=== PATIENT | female | born 1985 | race Caucasian/White ===

== ENCOUNTER 2018-07-21 13:35 | Inpatient (IN) ==
[2018-07-21] MEDS ORDERED: INSULIN REGULAR 100 UNIT/ML SUBCUT STA (16:43)
[2018-07-21 16:45] LABS: Basophils % 0.7 % (0.0-0.8); Eosinophils # 0.3 10*3/uL (0.0-0.87); Eosinophils % 6.3 % (0.00-10.9); Hematocrit 39.6 VOL% (35.7-47.0); Hemoglobin 13.3 GM/DL (12.0-16.0); Immature Granulocytes % 0.2 %; Immature Granulocytes Absolute 0.01 #; Lymphocytes # 2.8 10*3/uL (1.4-4.0); Lymphocytes % 51.7 % (21.3-54.2); Mean Corpuscular HGB Conc 33.6 GM/DL (32-36); Mean Corpuscular Hemoglobin 27 PG (27-34); Mean Corpuscular Volume 81.5 FL (87-102); Mean Platelet Volume 9.1 FL (9.6-12.0); Monocytes # 0.5 10*3/uL (0.11-0.8); Monocytes % 9.2 % (1.7-12.7); Neutrophils # 1.7 10*3/uL (1.4-7.4); Neutrophils % 31.9 % (38.7-73.9); Platelet Count 255 T/CUMM (130-400); Red Blood Count 4.86 MC/CUMM (3.8-5.5); Red Cell Distribution Width 13.4 % (9.3-17.3); White Blood Count 5.4 T/CUMM (4-12)
[2018-07-21 16:53] LABS: INR 0.9; Partial Thromboplastin Time 30.3 SECS (0-40)
[2018-07-21 17:10] LABS: Albumin 3.2 G/DL (3.4-5.0); Bilirubin,Total 0.6 MG/DL (0.2-1.0); Calcium 8.9 MG/DL (8.5-10.1); Osmolality,Calculated 277.5 MOS/KG (273-304); Potassium 3.9 MMOL/L (3.5-5.1); Total Protein 7.4 G/DL (6.4-8.3)
[2018-07-21 17:11] LABS: Lactic Acid 2.3 MMOL/L (0.4-2.0)
[2018-07-21] MEDS ORDERED: VANCOMYCIN INJ 1,000 MG in SODIUM CHLORIDE 0.9% 250 ML IV STA (17:33)
[2018-07-21 18:25] LABS: Eosinophils 7 % (0-10); Lymphocytes 51 % (20-55); Segmented Neutrophils 36 % (50-85); Total Cells Counted 100
[2018-07-21] MEDS ORDERED: ONDANSETRON 4 MG/2 ML VIAL IV PRN (18:37)
[2018-07-21] MEDS ORDERED: GLUCAGON 1 MG VIAL IM PRN ×2 (18:37)
[2018-07-21] MEDS ORDERED: DEXTROSE 50% 25 GM/50 ML VIAL IV PRN ×2 (18:37)
[2018-07-21 18:48] LABS: Platelet Estimate Adequate; Reactive Lymphocytes Few
[2018-07-21] MEDS ORDERED: HydrOXYzine PAMOATE 25 MG CAPSULE PO PRN (21:54)
[2018-07-21] MEDS ORDERED: KETOROLAC 30 MG/1 ML VIAL IV ONE (22:00)
[2018-07-21] MEDS: metFORMIN 500 MG TABLET PO SCH (22:25)
[2018-07-21] MEDS: ENOXAPARIN 40 MG/0.4 ML SYRINGE SUBCUT SCH (22:26)
[2018-07-21] MEDS: SODIUM CHLORIDE 0.9% 1,000 ML IV SCH (22:26)
[2018-07-21] MEDS: INSULIN REGULAR 100 UNIT/ML SUBCUT SCH (23:40)
[2018-07-22] MEDS: VANCOMYCIN INJ 1,000 MG in SODIUM CHLORIDE 0.9% 250 ML IV SCH ×3 (02:58→17:35)
[2018-07-22 07:34] LABS: Basophils % 0.7 % (0.0-0.8); Eosinophils # 0.3 10*3/uL (0.0-0.87); Hematocrit 35.8 VOL% (35.7-47.0); Hemoglobin 12.1 GM/DL (12.0-16.0); Immature Granulocytes % 0.2 %; Immature Granulocytes Absolute 0.01 #; Lymphocytes % 50.6 % (21.3-54.2); Mean Corpuscular HGB Conc 33.8 GM/DL (32-36); Mean Corpuscular Hemoglobin 28 PG (27-34); Mean Corpuscular Volume 81.9 FL (87-102); Mean Platelet Volume 9.3 FL (9.6-12.0); Monocytes # 0.6 10*3/uL (0.11-0.8); Monocytes % 9.6 % (1.7-12.7); Neutrophils % 33.9 % (38.7-73.9); Platelet Count 226 T/CUMM (130-400); Red Blood Count 4.37 MC/CUMM (3.8-5.5); Red Cell Distribution Width 13.3 % (9.3-17.3); White Blood Count 5.8 T/CUMM (4-12)
[2018-07-22 07:58] LABS: Eosinophils 6 % (0-10); Lymphocytes 56 % (20-55); Platelet Estimate Adequate; Segmented Neutrophils 34 % (50-85); Total Cells Counted 100
[2018-07-22 07:59] LABS: Atypical Lymphocytes Few; Hypochromasia 1+; Ovalocytes Slight
[2018-07-22 08:14] LABS: Albumin 2.6 G/DL (3.4-5.0); Bilirubin,Total 0.6 MG/DL (0.2-1.0); Calcium 8.1 MG/DL (8.5-10.1); Osmolality,Calculated 286.8 MOS/KG (273-304); Potassium 4.5 MMOL/L (3.5-5.1); Total Protein 6.5 G/DL (6.4-8.3)
[2018-07-22] MEDS ORDERED: PANTOPRAZOLE 40 MG TABLET PO SCH (09:00)
[2018-07-22] MEDS: PANTOPRAZOLE 40 MG TABLET PO SCH (10:47)
[2018-07-22] MEDS: metFORMIN 500 MG TABLET PO SCH ×2 (10:47→21:53)
[2018-07-22] MEDS: INSULIN REGULAR 100 UNIT/ML SUBCUT SCH ×4 (10:48→21:53)
[2018-07-22] MEDS ORDERED: ACETAMINOPHEN 325 MG TABLET PO PRN (17:28)
[2018-07-22] MEDS ORDERED: ACETAMINOPHEN 325 MG TABLET ONE (18:16)
[2018-07-22] MEDS ORDERED: INSULIN GLARGINE 100 UNIT/ML SUBCUT SCH (21:00)
[2018-07-22] MEDS: ENOXAPARIN 40 MG/0.4 ML SYRINGE SUBCUT SCH (21:55)
[2018-07-23] MEDS: SODIUM CHLORIDE 0.9% 1,000 ML IV SCH ×4 (00:26→22:13)
[2018-07-23] MEDS: VANCOMYCIN INJ 1,000 MG in SODIUM CHLORIDE 0.9% 250 ML IV SCH ×3 (02:22→18:53)
[2018-07-23] MEDS: metFORMIN 500 MG TABLET PO SCH ×2 (09:10→22:11)
[2018-07-23] MEDS: INSULIN REGULAR 100 UNIT/ML SUBCUT SCH ×4 (09:11→21:50)
[2018-07-23] MEDS: PANTOPRAZOLE 40 MG TABLET PO SCH (09:11)
[2018-07-23] MEDS ORDERED: INSULIN GLARGINE 100 UNIT/ML SUBCUT SCH (11:37)
[2018-07-23] MEDS: INSULIN LISPRO 100 UNIT/ML SUBCUT SCH ×2 (12:57→17:26)
[2018-07-23] MEDS: ENOXAPARIN 40 MG/0.4 ML SYRINGE SUBCUT SCH (22:12)
[2018-07-24] MEDS: SODIUM CHLORIDE 0.9% 1,000 ML IV SCH ×3 (00:22→10:22)
[2018-07-24] MEDS: VANCOMYCIN INJ 1,000 MG in SODIUM CHLORIDE 0.9% 250 ML IV SCH ×2 (01:53→09:16)
[2018-07-24 06:28] LABS: Calcium 8.4 MG/DL (8.5-10.1); Osmolality,Calculated 283.8 MOS/KG (273-304); Potassium 4.2 MMOL/L (3.5-5.1)
[2018-07-24] MEDS: INSULIN LISPRO 100 UNIT/ML SUBCUT SCH (08:15)
[2018-07-24] MEDS: PANTOPRAZOLE 40 MG TABLET PO SCH (08:15)
[2018-07-24] MEDS: metFORMIN 500 MG TABLET PO SCH (08:15)
[2018-07-24] MEDS: INSULIN REGULAR 100 UNIT/ML SUBCUT SCH (08:16)
[2018-07-24 08:53] VITALS: BP 122/71
[2018-07-24] MEDS ORDERED: INSULIN GLARGINE 100 UNIT/ML SUBCUT SCH (10:43)
[2018-07-24] MEDS ORDERED: DICLOFENAC 1% GEL 100 GM TUBE TOP SCH (15:00)
[2018-07-24] MEDS ORDERED: rOPINIRole 0.25 MG TABLET PO SCH (21:00)
== END 2018-07-24 11:15 | disposition home or self-care (01) | DRG 420 ==
LOC: N.ED 13:35 → N.EDINP 18:37 → N.5E 20:04
PROVIDERS: ADMIT Hospitalist; ATTEND Hospitalist

== ENCOUNTER 2018-08-15 19:36 | Inpatient (IN) ==
[2018-08-15 20:29] LABS: Basophils # 0.1 10*3/uL (0.0-0.2); Basophils % 0.4 % (0.0-0.8); Eosinophils # 0.1 10*3/uL (0.0-0.87); Eosinophils % 0.6 % (0.00-10.9); Hematocrit 36.8 VOL% (35.7-47.0); Hemoglobin 12.3 GM/DL (12.0-16.0); Immature Granulocytes % 0.3 %; Immature Granulocytes Absolute 0.04 #; Lymphocytes # 4.8 10*3/uL (1.4-4.0); Mean Corpuscular HGB Conc 33.4 GM/DL (32-36); Mean Corpuscular Hemoglobin 27 PG (27-34); Mean Corpuscular Volume 81.1 FL (87-102); Mean Platelet Volume 9.1 FL (9.6-12.0); Monocytes # 1.1 10*3/uL (0.11-0.8); Monocytes % 8.6 % (1.7-12.7); Neutrophils # 6.2 10*3/uL (1.4-7.4); Neutrophils % 51.1 % (38.7-73.9); Platelet Count 236 T/CUMM (130-400); Red Blood Count 4.54 MC/CUMM (3.8-5.5); Red Cell Distribution Width 13.9 % (9.3-17.3); White Blood Count 12.2 T/CUMM (4-12)
[2018-08-15] MEDS ORDERED: LORazepam 2 MG/1 ML VIAL IV STA ×3 (20:29→22:55)
[2018-08-15] MEDS ORDERED: MORPHINE 4 MG/1 ML VIAL IV STA (20:29)
[2018-08-15] MEDS ORDERED: SODIUM CHLORIDE 0.9% 1,000 ML IV STA ×2 (20:29→22:08)
[2018-08-15] MEDS ORDERED: ONDANSETRON 4 MG/2 ML VIAL IV ONE (20:29)
[2018-08-15 20:46] LABS: Alanine Aminotransferase 64 U/L (13-56); Albumin 3.6 G/DL (3.4-5.0); Alkaline Phosphatase 152 U/L (45-117); Aspartate Amino Transferase 34 U/L (0-37); Blood Urea Nitrogen 8 MG/DL (7-18); Osmolality,Calculated 278.2 MOS/KG (273-304); Potassium 4.4 MMOL/L (3.5-5.1); Sodium 127 MMOL/L (136-145); Total Protein 7.5 G/DL (6.4-8.3)
[2018-08-15 20:51] LABS: Glucose 575 MG/DL (74-106)
[2018-08-15 20:52] LABS: Lactic Acid 2.4 MMOL/L (0.4-2.0)
[2018-08-15 20:56] LABS: Polychromasia Few
[2018-08-15 20:57] LABS: Platelet Estimate Increased; Stomatocytes Slight
[2018-08-15] MEDS ORDERED: VANCOMYCIN INJ 1,000 MG in SODIUM CHLORIDE 0.9% 250 ML IV STA (21:39)
[2018-08-15] MEDS ORDERED: INSULIN REGULAR 100 UNIT/ML ONE (22:02)
[2018-08-15] MEDS ORDERED: INSULIN REGULAR 100 UNIT/ML IV STA (22:07)
[2018-08-15] MEDS ORDERED: ALBUTEROL 2.5 MG/3 ML NEB RESP TX PRN (23:12)
[2018-08-15] MEDS ORDERED: LACTATED RINGERS 1,000 ML IV ONE (23:29)
[2018-08-15] MEDS ORDERED: VASOPRESSIN 100 UNITS in SODIUM CHLORIDE 0.9% 95 ML IV PRN (23:29)
[2018-08-15] MEDS ORDERED: GLUCAGON 1 MG VIAL IM PRN (23:29)
[2018-08-15] MEDS ORDERED: ACETAMINOPHEN 325 MG TABLET PO PRN (23:29)
[2018-08-15] MEDS ORDERED: LORazepam 2 MG/1 ML VIAL IV PRN (23:29)
[2018-08-15] MEDS ORDERED: HALOPERIDOL 5 MG/ML AMP IV PRN (23:29)
[2018-08-15] MEDS ORDERED: NICOTINE 21 MG/24 HR PATCH TRANSDERM PRN (23:29)
[2018-08-15] MEDS ORDERED: DEXTROSE 50% 25 GM/50 ML VIAL IV PRN (23:29)
[2018-08-16 00:07] LABS: PT Patient Result 10.1 SECS
[2018-08-16 00:08] LABS: Apearance,Urine CLEAR (Clear); Bacteria,Urine Occasional /HPF (Few); Bilirubin,Urine Negative (Negative); Blood, Urine Negative (Negative); Glucose,Urine (UA) >=500 mg/dL (Negative); Ketones,Urine Negative (Negative); Mucus,Urine Occasional /LPF (Occasional); Nitrite,Urine Negative (Negative); Protein,Urine Negative; Squamous Epithelial Cell,Urine Occasional /HPF (0-10); Urine Color Straw (Yellow); Urine Specific Gravity 1.044 (1.001-1.035); Urine Urobilinogen < 2.0 EU/DL (0.2-1.0); WBC,Urine 2 /HPF (0-6)
[2018-08-16] MEDS ORDERED: SODIUM CHLORIDE 0.9% 2,000 ML IV ONE (00:09)
[2018-08-16] MEDS ORDERED: NOREPINEPHRINE 8 MG in SODIUM CHLORIDE 0.9% 242 ML IV PRN (00:14)
[2018-08-16 00:29] LABS: Barbiturates Screen,Urine Negative (Negative); Benzodiazepines Screen,Urine Negative (Negative); Cannabinoid Screen,Urine Negative (Negative); Opiate Screen,Urine Positive (Negative); Phencyclidine Screen,Urine Negative (Negative)
[2018-08-16] MEDS: CLINDAMYCIN INJ 600 MG in PREMIX 1 EACH IV SCH ×4 (00:40→23:03)
[2018-08-16] MEDS ORDERED: INFLUENZA VIRUS VACCINE 0.5 ML SYRINGE IM ONE (00:56)
[2018-08-16] MEDS: SODIUM CHLORIDE 0.9% 1,000 ML IV SCH ×3 (02:59→19:03)
[2018-08-16 03:20] LABS: Basophils % 0.4 % (0.0-0.8); Eosinophils % 0.4 % (0.00-10.9); Hemoglobin 11.1 GM/DL (12.0-16.0); Immature Granulocytes % 0.3 %; Immature Granulocytes Absolute 0.03 #; Lymphocytes # 4.6 10*3/uL (1.4-4.0); Lymphocytes % 42.8 % (21.3-54.2); Mean Corpuscular HGB Conc 32.6 GM/DL (32-36); Mean Corpuscular Hemoglobin 28 PG (27-34); Mean Corpuscular Volume 84.2 FL (87-102); Mean Platelet Volume 9.1 FL (9.6-12.0); Monocytes # 0.9 10*3/uL (0.11-0.8); Monocytes % 8.7 % (1.7-12.7); Neutrophils # 5.2 10*3/uL (1.4-7.4); Neutrophils % 47.4 % (38.7-73.9); Platelet Count 182 T/CUMM (130-400); Red Blood Count 4.04 MC/CUMM (3.8-5.5); Red Cell Distribution Width 14.1 % (9.3-17.3); White Blood Count 10.9 T/CUMM (4-12)
[2018-08-16] MEDS ORDERED: ZIPRASIDONE 20 MG/1 ML VIAL IM ONE (03:22)
[2018-08-16 03:45] LABS: Calcium 7.2 MG/DL (8.5-10.1); Osmolality,Calculated 273.4 MOS/KG (273-304); Potassium 3.8 MMOL/L (3.5-5.1)
[2018-08-16 03:50] LABS: Lactic Acid 1.2 MMOL/L (0.4-2.0)
[2018-08-16] MEDS: LORazepam 2 MG/1 ML VIAL IV PRN ×6 (05:06→23:52)
[2018-08-16] MEDS: PANTOPRAZOLE 40 MG VIAL IV SCH (08:33)
[2018-08-16] MEDS: HALOPERIDOL 5 MG/ML AMP IV PRN ×3 (08:36→23:52)
[2018-08-16] MEDS: INSULIN REGULAR 100 UNIT/ML SUBCUT SCH ×2 (17:18→20:10)
[2018-08-16] MEDS: rOPINIRole 0.25 MG TABLET PO SCH (20:05)
[2018-08-16] MEDS: INSULIN GLARGINE 100 UNIT/ML SUBCUT SCH (20:11)
[2018-08-17] MEDS: ACETAMINOPHEN 650 MG SUPP RECTAL PRN (00:36)
[2018-08-17 03:23] LABS: Basophils % 0.4 % (0.0-0.8); Eosinophils % 0.5 % (0.00-10.9); Hematocrit 33.2 VOL% (35.7-47.0); Hemoglobin 10.6 GM/DL (12.0-16.0); Immature Granulocytes % 0.4 %; Immature Granulocytes Absolute 0.03 #; Lymphocytes # 3.3 10*3/uL (1.4-4.0); Lymphocytes % 41.1 % (21.3-54.2); Mean Corpuscular HGB Conc 31.9 GM/DL (32-36); Mean Corpuscular Hemoglobin 27 PG (27-34); Mean Corpuscular Volume 85.1 FL (87-102); Mean Platelet Volume 9.2 FL (9.6-12.0); Monocytes # 0.5 10*3/uL (0.11-0.8); Monocytes % 6.6 % (1.7-12.7); Neutrophils # 4.1 10*3/uL (1.4-7.4); Platelet Count 199 T/CUMM (130-400); Red Cell Distribution Width 14.6 % (9.3-17.3)
[2018-08-17] MEDS: SODIUM CHLORIDE 0.9% 1,000 ML IV SCH ×2 (03:31→15:25)
[2018-08-17 03:46] LABS: Calcium 7.7 MG/DL (8.5-10.1); Osmolality,Calculated 278.5 MOS/KG (273-304); Potassium 3.2 MMOL/L (3.5-5.1)
[2018-08-17] MEDS: INSULIN REGULAR 100 UNIT/ML SUBCUT SCH ×4 (08:02→20:51)
[2018-08-17] MEDS: CLINDAMYCIN INJ 600 MG in PREMIX 1 EACH IV SCH (08:02)
[2018-08-17] MEDS: PANTOPRAZOLE 40 MG VIAL IV SCH (08:02)
[2018-08-17] MEDS ORDERED: MAGNESIUM SULF RIDER 2 GM in PREMIX 1 EACH IV ONE (08:04)
[2018-08-17] MEDS: MAGNESIUM SULF RIDER 2 GM in PREMIX 1 EACH IV SCH ×2 (09:26→12:01)
[2018-08-17] MEDS: POTASSIUM CHLORIDE 20 MEQ TABLET PO SCH ×3 (09:27→18:13)
[2018-08-17] MEDS: ceFAZolin 1,000 MG in SYRINGE 1 EACH IV SCH ×3 (11:47→23:40)
[2018-08-17] MEDS: POTASSIUM CHLORIDE RIDER 10 MEQ in PREMIX 1 EACH IV SCH ×2 (11:58→13:09)
[2018-08-17] MEDS: VANCOMYCIN INJ 750 MG in SODIUM CHLORIDE 0.9% 250 ML IV SCH ×2 (14:42→21:57)
[2018-08-17] MEDS: HALOPERIDOL 5 MG/ML AMP IM PRN (16:47)
[2018-08-17] MEDS: rOPINIRole 0.25 MG TABLET PO SCH (20:52)
[2018-08-17] MEDS: INSULIN GLARGINE 100 UNIT/ML SUBCUT SCH (20:52)
[2018-08-18] MEDS: ACETAMINOPHEN 650 MG SUPP RECTAL PRN (00:45)
[2018-08-18] MEDS: SODIUM CHLORIDE 0.9% 1,000 ML IV SCH ×2 (02:31→06:12)
[2018-08-18 03:25] LABS: Basophils % 0.4 % (0.0-0.8); Eosinophils # 0.1 10*3/uL (0.0-0.87); Eosinophils % 0.8 % (0.00-10.9); Hematocrit 32.7 VOL% (35.7-47.0); Hemoglobin 10.5 GM/DL (12.0-16.0); Immature Granulocytes % 0.4 %; Immature Granulocytes Absolute 0.03 #; Lymphocytes % 41.9 % (21.3-54.2); Mean Corpuscular HGB Conc 32.1 GM/DL (32-36); Mean Corpuscular Hemoglobin 27 PG (27-34); Mean Corpuscular Volume 85.2 FL (87-102); Mean Platelet Volume 9.2 FL (9.6-12.0); Monocytes # 0.5 10*3/uL (0.11-0.8); Monocytes % 6.9 % (1.7-12.7); Neutrophils # 3.5 10*3/uL (1.4-7.4); Neutrophils % 49.6 % (38.7-73.9); Platelet Count 226 T/CUMM (130-400); Red Blood Count 3.84 MC/CUMM (3.8-5.5); Red Cell Distribution Width 14.4 % (9.3-17.3); White Blood Count 7.1 T/CUMM (4-12)
[2018-08-18 03:37] LABS: Calcium 7.5 MG/DL (8.5-10.1); Potassium 3.5 MMOL/L (3.5-5.1)
[2018-08-18 04:29] LABS: HIV Antigen/Antibody Result Nonreactive (Nonreactive)
[2018-08-18] MEDS: ceFAZolin 1,000 MG in SYRINGE 1 EACH IV SCH ×4 (05:30→23:49)
[2018-08-18] MEDS: VANCOMYCIN INJ 750 MG in SODIUM CHLORIDE 0.9% 250 ML IV SCH ×2 (06:00→14:33)
[2018-08-18] MEDS: INSULIN REGULAR 100 UNIT/ML SUBCUT SCH ×4 (08:32→20:56)
[2018-08-18] MEDS: PANTOPRAZOLE 40 MG VIAL IV SCH (08:33)
[2018-08-18] MEDS: VANCOMYCIN INJ 1,000 MG in SODIUM CHLORIDE 0.9% 250 ML IV SCH (20:50)
[2018-08-18] MEDS: MUPIROCIN 2% OINT 22 GM TUBE TOP SCH (20:50)
[2018-08-18] MEDS: rOPINIRole 0.25 MG TABLET PO SCH (20:50)
[2018-08-18] MEDS: IBUPROFEN 600 MG TABLET PO PRN (20:50)
[2018-08-18] MEDS: INSULIN GLARGINE 100 UNIT/ML SUBCUT SCH (20:57)
[2018-08-19 06:00] LABS: Basophils % 0.5 % (0.0-0.8); Eosinophils # 0.1 10*3/uL (0.0-0.87); Eosinophils % 2.4 % (0.00-10.9); Hematocrit 31.3 VOL% (35.7-47.0); Hemoglobin 10.3 GM/DL (12.0-16.0); Immature Granulocytes % 0.2 %; Immature Granulocytes Absolute 0.01 #; Lymphocytes # 2.4 10*3/uL (1.4-4.0); Lymphocytes % 55.5 % (21.3-54.2); Mean Corpuscular HGB Conc 32.9 GM/DL (32-36); Mean Corpuscular Hemoglobin 28 PG (27-34); Mean Corpuscular Volume 83.9 FL (87-102); Mean Platelet Volume 8.8 FL (9.6-12.0); Monocytes # 0.4 10*3/uL (0.11-0.8); Monocytes % 9.2 % (1.7-12.7); Neutrophils # 1.4 10*3/uL (1.4-7.4); Neutrophils % 32.2 % (38.7-73.9); Platelet Count 214 T/CUMM (130-400); Red Blood Count 3.73 MC/CUMM (3.8-5.5); Red Cell Distribution Width 14.6 % (9.3-17.3); White Blood Count 4.3 T/CUMM (4-12)
[2018-08-19] MEDS: VANCOMYCIN INJ 1,000 MG in SODIUM CHLORIDE 0.9% 250 ML IV SCH ×3 (06:06→20:53)
[2018-08-19] MEDS: ceFAZolin 1,000 MG in SYRINGE 1 EACH IV SCH ×3 (06:07→18:15)
[2018-08-19 06:20] LABS: Eosinophils 3 % (0-10); Hypochromasia 1+; Lymphocytes 44 % (20-55); Platelet Estimate Adequate; Segmented Neutrophils 42 % (50-85); Total Cells Counted 100
[2018-08-19 06:21] LABS: Atypical Lymphocytes Few
[2018-08-19 06:32] LABS: Calcium 8.2 MG/DL (8.5-10.1); Osmolality,Calculated 284.4 MOS/KG (273-304); Potassium 3.7 MMOL/L (3.5-5.1)
[2018-08-19] MEDS: PANTOPRAZOLE 40 MG TABLET PO SCH (08:44)
[2018-08-19] MEDS: INSULIN REGULAR 100 UNIT/ML SUBCUT SCH ×4 (08:44→21:41)
[2018-08-19] MEDS ORDERED: MAGNESIUM SULF RIDER 4 GM in PREMIX 1 EACH IV ONE (10:30)
[2018-08-19] MEDS: MUPIROCIN 2% OINT 22 GM TUBE TOP SCH ×3 (11:06→21:40)
[2018-08-19] MEDS: metFORMIN 500 MG TABLET PO SCH ×2 (11:07→21:40)
[2018-08-19] MEDS: IBUPROFEN 600 MG TABLET PO PRN (17:43)
[2018-08-19] MEDS: HALOPERIDOL 5 MG/ML AMP IM PRN ×2 (17:43→21:51)
[2018-08-19] MEDS: VANCOMYCIN INJ 1,250 MG in SODIUM CHLORIDE 0.9% 250 ML IV SCH (21:29)
[2018-08-19] MEDS: rOPINIRole 0.25 MG TABLET PO SCH (21:40)
[2018-08-19] MEDS: INSULIN GLARGINE 100 UNIT/ML SUBCUT SCH (21:41)
[2018-08-20] MEDS: ceFAZolin 1,000 MG in SYRINGE 1 EACH IV SCH ×3 (00:11→11:41)
[2018-08-20] MEDS: VANCOMYCIN INJ 1,250 MG in SODIUM CHLORIDE 0.9% 250 ML IV SCH ×2 (03:44→12:50)
[2018-08-20 05:30] LABS: Basophils % 0.2 % (0.0-0.8); Eosinophils # 0.1 10*3/uL (0.0-0.87); Eosinophils % 3.1 % (0.00-10.9); Hemoglobin 9.8 GM/DL (12.0-16.0); Immature Granulocytes % 0.5 %; Immature Granulocytes Absolute 0.02 #; Lymphocytes # 2.6 10*3/uL (1.4-4.0); Lymphocytes % 63.4 % (21.3-54.2); Mean Corpuscular HGB Conc 31.6 GM/DL (32-36); Mean Corpuscular Hemoglobin 27 PG (27-34); Mean Corpuscular Volume 84.5 FL (87-102); Mean Platelet Volume 9.2 FL (9.6-12.0); Monocytes # 0.4 10*3/uL (0.11-0.8); Monocytes % 8.7 % (1.7-12.7); Neutrophils % 24.1 % (38.7-73.9); Platelet Count 216 T/CUMM (130-400); Red Blood Count 3.67 MC/CUMM (3.8-5.5); Red Cell Distribution Width 14.4 % (9.3-17.3); White Blood Count 4.2 T/CUMM (4-12)
[2018-08-20 05:50] LABS: Calcium 8.1 MG/DL (8.5-10.1); Osmolality,Calculated 285.1 MOS/KG (273-304); Potassium 3.7 MMOL/L (3.5-5.1)
[2018-08-20 06:04] LABS: Eosinophils 3 % (0-10); Hypochromasia Slight; Lymphocytes 61 % (20-55); Platelet Estimate Normal; Polychromasia Few; Segmented Neutrophils 34 % (50-85); Total Cells Counted 100
[2018-08-20] MEDS: INSULIN REGULAR 100 UNIT/ML SUBCUT SCH ×4 (08:59→22:09)
[2018-08-20] MEDS: PANTOPRAZOLE 40 MG TABLET PO SCH (09:20)
[2018-08-20] MEDS: metFORMIN 500 MG TABLET PO SCH ×2 (09:20→22:08)
[2018-08-20] MEDS: MUPIROCIN 2% OINT 22 GM TUBE TOP SCH ×3 (09:23→22:12)
[2018-08-20] MEDS ORDERED: LIDOCAINE 1% 20 ML VIAL MISC INJ ONE (11:02)
[2018-08-20] MEDS: LINEZOLID 600 MG TABLET PO SCH ×2 (13:16→22:08)
[2018-08-20] MEDS: LISINOPRIL 10 MG TABLET PO SCH (14:55)
[2018-08-20] MEDS ORDERED: TUBERCULIN SKIN TEST 0.1 ML SYRINGE INTRADERM ONE (15:24)
[2018-08-20] MEDS: IBUPROFEN 600 MG TABLET PO PRN ×2 (16:20→22:08)
[2018-08-20] MEDS: HALOPERIDOL 5 MG/ML AMP IM PRN (16:42)
[2018-08-20] MEDS: rOPINIRole 0.25 MG TABLET PO SCH (22:08)
[2018-08-20] MEDS: INSULIN GLARGINE 100 UNIT/ML SUBCUT SCH (22:09)
[2018-08-21] MEDS: PANTOPRAZOLE 40 MG TABLET PO SCH (09:40)
[2018-08-21] MEDS: LISINOPRIL 10 MG TABLET PO SCH (09:40)
[2018-08-21] MEDS: metFORMIN 500 MG TABLET PO SCH ×2 (09:40→20:27)
[2018-08-21] MEDS: LINEZOLID 600 MG TABLET PO SCH ×2 (09:41→20:27)
[2018-08-21] MEDS: INSULIN REGULAR 100 UNIT/ML SUBCUT SCH ×4 (09:42→20:27)
[2018-08-21] MEDS: MUPIROCIN 2% OINT 22 GM TUBE TOP SCH ×3 (09:42→20:28)
[2018-08-21] MEDS: INSULIN GLARGINE 100 UNIT/ML SUBCUT SCH ×2 (12:01→20:28)
[2018-08-21] MEDS: INSULIN LISPRO 100 UNIT/ML SUBCUT SCH ×2 (12:02→16:47)
[2018-08-21] MEDS: IBUPROFEN 600 MG TABLET PO PRN (14:49)
[2018-08-21] MEDS: HALOPERIDOL 5 MG/ML AMP IM PRN (19:45)
[2018-08-21] MEDS: rOPINIRole 0.25 MG TABLET PO SCH (20:27)
[2018-08-22] MEDS: HALOPERIDOL 5 MG/ML AMP IM PRN (03:57)
[2018-08-22] MEDS: INSULIN REGULAR 100 UNIT/ML SUBCUT SCH ×2 (10:03→12:15)
[2018-08-22] MEDS: INSULIN GLARGINE 100 UNIT/ML SUBCUT SCH (10:05)
[2018-08-22] MEDS: PANTOPRAZOLE 40 MG TABLET PO SCH (10:06)
[2018-08-22] MEDS: LINEZOLID 600 MG TABLET PO SCH (10:06)
[2018-08-22] MEDS: metFORMIN 500 MG TABLET PO SCH (10:06)
[2018-08-22] MEDS: LISINOPRIL 10 MG TABLET PO SCH (10:08)
[2018-08-22] MEDS: INSULIN LISPRO 100 UNIT/ML SUBCUT SCH ×2 (10:08→12:14)
[2018-08-22] MEDS: MUPIROCIN 2% OINT 22 GM TUBE TOP SCH (10:11)
[2018-08-22 12:55] VITALS: BP 105/65
== END 2018-08-22 13:59 | disposition home or self-care (01) | DRG 812 ==
LOC: N.ED 19:36 → SUATTDRO 23:12 → N.EDINP 23:12 → N.ICU 23:52 → N.3E 08-19 13:11
PROVIDERS: ADMIT Internal Medicine; ATTEND Internal Medicine

== ENCOUNTER 2022-08-12 13:28 | Inpatient (IN) ==
[2022-08-12] MEDS ORDERED: GLUCAGON 1 MG VIAL IM PRN (14:39)
[2022-08-12] MEDS ORDERED: DEXTROSE 10% 250 ML BAG IV PRN (14:39)
[2022-08-12 14:55] LABS: Basophils % 0.2 % (0.0-0.8); Eosinophils # 0.1 10*3/uL (0.0-0.87); Eosinophils % 1.2 % (0.00-10.9); Hematocrit 35.3 VOL% (35.7-47.0); Hemoglobin 11.4 GM/DL (12.0-16.0); Immature Granulocytes % 0.6 %; Immature Granulocytes Absolute 0.05 #; Lymphocytes # 2.2 10*3/uL (1.4-4.0); Lymphocytes % 26.3 % (21.3-54.2); Mean Corpuscular HGB Conc 32.3 GM/DL (32-36); Mean Corpuscular Volume 90.5 FL (87-102); Mean Platelet Volume 10.2 FL (9.6-12.0); Monocytes # 0.6 10*3/uL (0.11-0.8); Monocytes % 7.5 % (1.7-12.7); Neutrophils % 64.2 % (38.7-73.9); Platelet Count 206 T/CUMM (130-400); Red Cell Distribution Width 14.7 % (9.3-17.3); White Blood Count 8.4 T/CUMM (4-12)
[2022-08-12] MEDS: BETAMETH SODIUM PHOS/ACETATE 30 MG/5 ML VIAL IM SCH (14:55)
[2022-08-12 15:30] LABS: Alanine Aminotransferase 21 U/L (13-56); Albumin 2.4 G/DL (3.4-5.0); Alkaline Phosphatase 84 U/L (45-117); Aspartate Amino Transferase 36 U/L (0-37); Bilirubin,Total < 0.39 MG/DL (0.20-1.00); Blood Urea Nitrogen 12 MG/DL (7-18); Calcium 8.8 MG/DL (8.5-10.1); Carbon Dioxide 18 MMOL/L (21-32); Chloride 110 MMOL/L (98-107); Glucose 123 MG/DL (74-106); Osmolality,Calculated 275.7 MOS/KG (273-304); Potassium 4.3 MMOL/L (3.5-5.1); Sodium 138 MMOL/L (136-145); Total Protein 6.5 G/DL (6.4-8.2)
[2022-08-12] MEDS: INSULIN REGULAR 100 UNIT/ML SUBCUT SCH ×2 (16:40→20:53)
[2022-08-12] MEDS ORDERED: INSULIN LISPRO 100 UNIT/ML SUBCUT SCH (16:54)
[2022-08-12 17:28] LABS: INR 0.8; PT Patient Result 9.4 SECS (10.1-12.1); Partial Thromboplastin Time 27.6 SECS (23.7-32.9)
[2022-08-12 18:10] LABS: Bilirubin,Direct < 0.100 MG/DL (0.0-0.20); Uric Acid 7.6 MG/DL (2.6-6.0)
[2022-08-12] MEDS: LACTATED RINGERS 1,000 ML IV SCH (18:16)
[2022-08-12 18:47] LABS: Protein/Creatinine Ratio,Urine 0.4 RATIO
[2022-08-12 18:48] LABS: Barbiturates Screen,Urine Negative (Negative); Benzodiazepines Screen,Urine Negative (Negative); Cannabinoid Screen,Urine Negative (Negative); Opiate Screen,Urine Negative (Negative); Phencyclidine Screen,Urine Negative (Negative)
[2022-08-12] MEDS: LABETALOL 200 MG TABLET PO SCH (20:38)
[2022-08-12] MEDS: INSULIN GLARGINE 100 UNIT/ML SUBCUT SCH (20:53)
[2022-08-12] MEDS ORDERED: INSULIN GLARGINE 100 UNIT/ML SUBCUT SCH (21:00)
[2022-08-13 00:05] LABS: RPR Confirm - Less than 1 yr REACTIVE (Nonreactive)
[2022-08-13] MEDS: BETAMETH SODIUM PHOS/ACETATE 30 MG/5 ML VIAL IM SCH (02:23)
[2022-08-13] MEDS ORDERED: hydrOXYzine HCL 25 MG/1 ML VIAL IM ONE (03:36)
[2022-08-13] MEDS ORDERED: SODIUM CHLORIDE 0.9% 0 ML IV ONE (06:03)
[2022-08-13] MEDS ORDERED: ONDANSETRON 4 MG/2 ML VIAL ONE (06:56)
[2022-08-13] MEDS ORDERED: PHENYLEPHRINE 1 MG/10 ML SYRINGE IV ONE (06:56)
[2022-08-13] MEDS ORDERED: buprenorphine HCL 0.3 MG/ML VIAL ONE (06:57)
[2022-08-13] MEDS ORDERED: DEXMEDETOMIDINE 200 MCG/2 ML VIAL ONE (06:57)
[2022-08-13] MEDS ORDERED: OXYTOCIN/LR 20 UNIT/1,000 ML BAG IV ONE ×2 (07:00→10:12)
[2022-08-13] MEDS ORDERED: FAMOTIDINE 20 MG/2 ML VIAL IV ONE (07:00)
[2022-08-13] MEDS ORDERED: CITRIC ACID/SODIUM CITRATE 30 ML UDCUP PO ONE (07:00)
[2022-08-13] MEDS ORDERED: miSOPROStoL 200 MCG TABLET RECTAL PRN (07:00)
[2022-08-13] MEDS ORDERED: METHYLERGONOVINE 0.2 MG/1 ML AMP IM PRN (07:00)
[2022-08-13] MEDS ORDERED: OXYTOCIN/LR 30 UNIT/1,000 ML BAG IV ONE (07:00)
[2022-08-13] MEDS ORDERED: CARBOPROST TROMETHAMINE 250 MCG/ML AMP IM PRN (07:00)
[2022-08-13] MEDS ORDERED: TRANEXAMIC ACID 1,000 MG in SODIUM CHLORIDE 0.9% 100 ML IV PRN (07:00)
[2022-08-13] MEDS ORDERED: ceFAZolin 3,000 MG in SYRINGE 1 EACH IV ONE (07:00)
[2022-08-13] MEDS: LACTATED RINGERS 1,000 ML IV SCH ×4 (07:01→23:08)
[2022-08-13] MEDS ORDERED: OXYTOCIN 10 UNIT/ML VIAL IM ONE (07:01)
[2022-08-13] MEDS: INSULIN REGULAR 100 UNIT/ML SUBCUT SCH ×4 (07:30→23:11)
[2022-08-13] MEDS: LABETALOL 200 MG TABLET PO SCH ×2 (07:42→11:06)
[2022-08-13] MEDS ORDERED: KETOROLAC 30 MG/1 ML VIAL ONE (09:04)
[2022-08-13] MEDS ORDERED: ACETAMINOPHEN INJ 1,000 MG/100 ML VIAL IV ONE (09:04)
[2022-08-13] MEDS ORDERED: KETAMINE 500 MG/10 ML VIAL ONE (09:43)
[2022-08-13 09:44] LABS: Cord Arterial Blood HCO3 12.4 MMOL/L
[2022-08-13] MEDS ORDERED: BUPIVACAINE MPF 0.25% 30 ML VIAL ONE ×2 (09:45)
[2022-08-13 09:47] LABS: Cord Venous Blood HCO3 13.7 MMOL/L; Cord Venous Blood PCO2 57.6 MMHG; Cord Venous Blood PO2 18.2
[2022-08-13 09:48] LABS: Bilirubin,Urine Negative (Negative); Blood, Urine Negative (Negative); Glucose,Urine (UA) >=500 mg/dL (Negative); Ketones,Urine 80 mg/dL (Negative); Mucus,Urine Occasional /LPF (Occasional); Nitrite,Urine Negative (Negative); Protein,Urine Negative (Negative); RBC,Urine <1 /HPF (0-4); Urine Appearance CLEAR (Clear); Urine Color Straw (Yellow); Urine Specific Gravity 1.021 (1.001-1.035); Urine Urobilinogen < 2.0 eU/dL (<2.0)
[2022-08-13] MEDS ORDERED: DEXTROSE 10% 250 ML BAG IV PRN (10:12)
[2022-08-13] MEDS ORDERED: SIMETHICONE CHEW 80 MG TABLET PO PRN (10:12)
[2022-08-13] MEDS ORDERED: ONDANSETRON 4 MG/2 ML VIAL IV PRN (10:12)
[2022-08-13] MEDS ORDERED: RHO(D) IMMUNE GLOBULIN 300 MCG SYRINGE IM ONE (10:12)
[2022-08-13] MEDS ORDERED: GLUCAGON 1 MG VIAL IM PRN (10:12)
[2022-08-13] MEDS ORDERED: ACETAMINOPHEN 325 MG TABLET PO PRN (10:12)
[2022-08-13] MEDS ORDERED: MAGNESIUM HYDROXIDE SUSP 30 ML UDCUP PO PRN (10:12)
[2022-08-13] MEDS: INSULIN GLARGINE 100 UNIT/ML SUBCUT SCH (11:05)
[2022-08-13] MEDS: KETOROLAC 30 MG/1 ML VIAL IV SCH ×2 (16:36→22:40)
[2022-08-13] MEDS: ACETAMINOPHEN 500 MG TABLET PO SCH ×2 (16:38→22:40)
[2022-08-13 16:43] LABS: Basophils % 0.1 % (0.0-0.8); Hematocrit 33.2 VOL% (35.7-47.0); Hemoglobin 10.5 GM/DL (12.0-16.0); Immature Granulocytes % 0.6 %; Immature Granulocytes Absolute 0.09 #; Lymphocytes # 1.3 10*3/uL (1.4-4.0); Lymphocytes % 9.5 % (21.3-54.2); Mean Corpuscular HGB Conc 31.6 GM/DL (32-36); Mean Corpuscular Volume 91.7 FL (87-102); Mean Platelet Volume 10.5 FL (9.6-12.0); Monocytes # 0.9 10*3/uL (0.11-0.8); Monocytes % 6.1 % (1.7-12.7); Neutrophils % 83.7 % (38.7-73.9); Platelet Count 202 T/CUMM (130-400); Red Blood Count 3.62 MC/CUMM (3.8-5.5); Red Cell Distribution Width 15.1 % (9.3-17.3); White Blood Count 14.1 T/CUMM (4-12)
[2022-08-13] MEDS ORDERED: INSULIN LISPRO 100 UNIT/ML SUBCUT ONE (20:45)
[2022-08-13] MEDS ORDERED: INSULIN GLARGINE 100 UNIT/ML SUBCUT SCH (21:00)
[2022-08-13] MEDS: DOCUSATE SODIUM 100 MG CAPSULE PO SCH (23:12)
[2022-08-13] MEDS ORDERED: DEXTROSE 50% 25 GM/50 ML SYRINGE IV PRN (23:20)
[2022-08-13] MEDS ORDERED: PROMETHAZINE 25 MG/1 ML VIAL IM ONE (23:22)
[2022-08-13] MEDS ORDERED: MEPERIDINE 50 MG/1 ML VIAL IM ONE (23:30)
[2022-08-14] MEDS: ACETAMINOPHEN 500 MG TABLET PO SCH (04:20)
[2022-08-14] MEDS: KETOROLAC 30 MG/1 ML VIAL IV SCH ×2 (04:20→10:15)
[2022-08-14 05:28] LABS: Basophils % 0.2 % (0.0-0.8); Eosinophils % 0.1 % (0.00-10.9); Hematocrit 31.3 VOL% (35.7-47.0); Immature Granulocytes % 0.9 %; Lymphocytes # 2.1 10*3/uL (1.4-4.0); Lymphocytes % 18.3 % (21.3-54.2); Mean Corpuscular HGB Conc 31.9 GM/DL (32-36); Mean Corpuscular Volume 91.3 FL (87-102); Mean Platelet Volume 10.3 FL (9.6-12.0); Monocytes # 0.9 10*3/uL (0.11-0.8); Monocytes % 7.4 % (1.7-12.7); Neutrophils % 73.1 % (38.7-73.9); Platelet Count 211 T/CUMM (130-400); Red Blood Count 3.43 MC/CUMM (3.8-5.5); Red Cell Distribution Width 15.3 % (9.3-17.3); White Blood Count 11.5 T/CUMM (4-12)
[2022-08-14] MEDS ORDERED: HYDROmorphone 1 MG/1 ML SYRINGE ONE (08:48)
[2022-08-14] MEDS ORDERED: ONDANSETRON 4 MG/2 ML VIAL IV ONE (09:00)
[2022-08-14] MEDS ORDERED: HYDROmorphone 1 MG/1 ML SYRINGE IV ONE (09:00)
[2022-08-14] MEDS: DOCUSATE SODIUM 100 MG CAPSULE PO SCH ×2 (10:18→22:30)
[2022-08-14] MEDS: MULTIVITAMIN (PRENATAL) TABLET PO SCH (10:18)
[2022-08-14] MEDS: INSULIN GLARGINE 100 UNIT/ML SUBCUT SCH ×2 (10:18→17:25)
[2022-08-14] MEDS: metFORMIN 500 MG TABLET PO SCH ×2 (10:18→17:23)
[2022-08-14] MEDS: METOCLOPRAMIDE 10 MG TABLET PO SCH ×2 (10:24→18:07)
[2022-08-14] MEDS: IBUPROFEN 800 MG TABLET PO PRN ×2 (15:25→23:27)
[2022-08-14] MEDS ORDERED: NIFEdipine 10 MG CAPSULE PO ONE (15:49)
[2022-08-14] MEDS ORDERED: INSULIN LISPRO 100 UNIT/ML SUBCUT SCH (17:31)
[2022-08-14] MEDS: oxyCODONE/ACETAMINOPHEN 5-325 MG TABLET PO PRN (18:01)
[2022-08-14] MEDS ORDERED: LORazepam 1 MG TABLET PO PRN (19:41)
[2022-08-15] MEDS ORDERED: HydrOXYzine PAMOATE 25 MG CAPSULE PO PRN (04:36)
[2022-08-15] MEDS: IBUPROFEN 800 MG TABLET PO PRN ×4 (04:48→22:15)
[2022-08-15] MEDS ORDERED: NIFEdipine 10 MG CAPSULE PO ONE ×2 (06:29→06:37)
[2022-08-15] MEDS ORDERED: metFORMIN 500 MG TABLET PO SCH (08:00)
[2022-08-15] MEDS ORDERED: INSULIN GLARGINE 100 UNIT/ML SUBCUT SCH ×2 (08:00→21:00)
[2022-08-15] MEDS ORDERED: INSULIN LISPRO 100 UNIT/ML SUBCUT SCH (08:00)
[2022-08-15] MEDS: MULTIVITAMIN (PRENATAL) TABLET PO SCH (09:45)
[2022-08-15] MEDS: DOCUSATE SODIUM 100 MG CAPSULE PO SCH ×2 (10:16→22:15)
[2022-08-15] MEDS: oxyCODONE/ACETAMINOPHEN 5-325 MG TABLET PO PRN (19:06)
[2022-08-15] MEDS: INSULIN LISPRO 100 UNIT/ML SUBCUT SCH (22:15)
[2022-08-15] MEDS ORDERED: ZALEPLON 5 MG CAPSULE PO PRN (22:16)
[2022-08-15] MEDS: LACTATED RINGERS 1,000 ML IV SCH (22:30)
[2022-08-16] MEDS: oxyCODONE/ACETAMINOPHEN 5-325 MG TABLET PO PRN ×2 (03:30→16:49)
[2022-08-16] MEDS: IBUPROFEN 800 MG TABLET PO PRN ×3 (04:30→23:34)
[2022-08-16] MEDS: MULTIVITAMIN (PRENATAL) TABLET PO SCH (08:41)
[2022-08-16] MEDS: DOCUSATE SODIUM 100 MG CAPSULE PO SCH ×2 (08:41→20:53)
[2022-08-16] MEDS: INSULIN LISPRO 100 UNIT/ML SUBCUT SCH (08:41)
[2022-08-16] MEDS ORDERED: INSULIN GLARGINE 100 UNIT/ML SUBCUT SCH ×4 (09:00→21:00)
[2022-08-16] MEDS ORDERED: INSULIN LISPRO 100 UNIT/ML SUBCUT SCH (17:00)
[2022-08-17 03:55] VITALS: BP 125/65
[2022-08-17] MEDS: DOCUSATE SODIUM 100 MG CAPSULE PO SCH (10:07)
[2022-08-17] MEDS: MULTIVITAMIN (PRENATAL) TABLET PO SCH (10:07)
[2022-08-17] MEDS: IBUPROFEN 800 MG TABLET PO PRN (10:41)
== END 2022-08-17 15:30 | disposition home or self-care (01) | DRG 786 ==
LOC: N.LD 13:28 → N.OB 08-13 13:08
PROVIDERS: ADMIT Obstetrics & Gynecology; ATTEND Obstetrics & Gynecology
PROC: LDCSECT (ICD-10-PCS; 2022-08-13 08:00)